=== PATIENT | male | born 1985 | race Caucasian/White ===

== ENCOUNTER 2020-08-16 03:21 | Emergency (ER) | payer MEDICAID, SELFPAY ==
[2020-08-16 03:22] VITALS: BP 137/103; PULSE 99; RESP 16; TEMP 36.7; O2SAT 100; BMI 34.7
--- NOTE | 2020-08-16 03:31 | ED.DCSUM_ITS ---
History of Present Illness Chief Complaint: Back Informant: Patient Narrative: Stated he was lifting some heavy boxes about 6 hours ago up to 50 pounds. Thinks he injured his left lower back. 2 hours later he started having spasm pain left back. No home treatment. Worse by movement. No loss of bowel or bladder function. Nothing going down his leg. Is pinpoint to the left lower back. It is a sharp pain only with movement. No pain at rest. Current severity is moderate. Does have a history of back problems but is never been diagnosed with anything serious or disc herniation or anything like that Past Medical History - Allergies and Home Meds Allergies/Adverse Reactions: Allergies No Known Allergies Allergy (Verified 06/28/16 01:57) Primary Care Physician: Mariah Gordillo MD [Primary Care Provider] - Prior records reviewed: Yes Past Medical History: - - Reviewed Surgical History: - - Reviewed Smoking Status: Current every day smoker Alcohol: None Drugs: None Review of Systems General: Denies: Chills, Fever, Sweats Eyes: Denies: Visual changes - bilaterally, Diplopia ENT: Denies: Rhinorrhea, Sore throat Cardiovascular: Denies: Chest pain, Palpitations Respiratory: Denies: Dyspnea, Cough, Dyspnea on exertion Gastrointestinal: Denies: Abdominal pain, Nausea, Vomiting, Diarrhea, Melena, Hematochezia Genitourinary: Denies: Dysuria, Hematuria, Frequency Musculoskeletal: Reports: Back pain. Denies: Extremity Pain Skin: Denies: Rash, Wounds Neurological: Denies: Headache, Weakness, Numbness Physical Exam Vital Signs/Narrative: Vital Signs Temp Pulse Resp BP Pulse Ox 08/16/20 03:22 98.1 F 99 16 137/103 H 100 General: Well nourished, Well developed, No Acute Distress Head: Normocephalic, Atraumatic Eyes: Perrl, EOMI ENT: Moist mucous membranes, No rhinorrhea Neck: Supple, Nontender Cardiovascular: Regular rate, Regular rhythm, No murmurs Respiratory: No distress, CTA bilaterally, Chest nontender Abdomen: Soft, Nontender, Nondistended, Normal bowel sounds Back: Normal Inspection, - - Point tenderness left lateral lumbar para musculature. Decreased range of motion secondary to pain in this area. Able to ambulate to the bathroom. If straight leg raise at 30 degrees.. Negative for: CVA tenderness, Spinal tenderness Extremities: Nontender, No edema Skin: Normal color, No rash Neurological: Alert, Oriented x3, Cranial nerves II-XII grossly intact, Normal Strength, Normal Sensation Psychological: Normal affect, Normal Mood Diagnostic/Tx/Re-eval - Medical Decision Making Patient given ibuprofen. He is going to drive home. Given short course of Percocet for home for breakthrough pain. Will rest and ice and use anti- inflammatories and follow-up as an outpatient at this time I feel he strained his left lower back. I do not feel he needs imaging. I do not think he has a cauda equina syndrome or epidural abscess or other emergent cause ED Disposition - Plan for ED Patient: Disposition: Home or Assisted Living Diagnosis: Low back strain Instructions: ED Back Sprain/Strain Prescriptions: Oxycodone HCl/Acetaminophen [Percocet 5/325] 1 tab PO Q6H PRN PRN 3 Days #12 tab PRN Reason: Pain Prescription Printed Referrals: Mariah Gordillo MD [Primary Care Provider] -
[2020-08-16] MEDS: Ibuprofen 400 MG Tablet 800 MG PO (03:36)
[2020-08-16 03:55] VITALS: BP 144/83; PULSE 94; RESP 16; O2SAT 99
== END 2020-08-16 03:58 | disposition home or self-care (01) ==
LOC: ED 03:53
PROVIDERS: Emergency Provider Emergency Medicine
DX: S39.012A Strain of muscle, fascia and tendon of lower back, initial encounter (principal); X50.0XXA Overexertion from strenuous movement or load, initial encounter; Y93.89 Activity, other specified; Y92.9 Unspecified place or not applicable; Y99.9 Unspecified external cause status; F17.200 Nicotine dependence, unspecified, uncomplicated
CPT/HCPCS: 99282

== ENCOUNTER 2020-08-20 15:16 | Emergency (ER) | payer MEDICAID, SELFPAY ==
[2020-08-20 15:16] VITALS: BP 156/114; PULSE 93; RESP 16; TEMP 36.4; O2SAT 97; BMI 33.8
--- NOTE | 2020-08-20 15:30 | ED.VIS.GEN ---
History of Present Illness Chief Complaint: Back Informant: Patient Narrative: Patient is a 35-year-old male who presents to the emergency department for low back pain. He was seen for a similar complaint 4 days ago. He states that he slipped today and landed on his back which aggravated his symptoms. He states the only thing that helped was the Percocet which was previously prescribed to him. He is now out of this. Not tried take anything else for it. He states his pain was getting better until he fell today. He denies any pain going down his legs. No numbness when wiping. Denies any issues with urinary retention. Already of the pain is on the left side of the low back. He denies any fevers or chills. No abdominal pain or chest pain. No prior history of back issues. Past Medical History - Allergies and Home Meds Allergies/Adverse Reactions: Allergies No Known Allergies Allergy (Verified 08/20/20 15:18) Primary Care Physician: Care Physician,No Primary [Primary Care Provider] - Lavon Son MD [[facility]] - 3-5 Days Prior records reviewed: Yes Past Medical History: None Surgical History: - - Reviewed Smoking Status: Current every day smoker Review of Systems All systems negative except as indicated General: Denies: Chills, Fever, Sweats Eyes: Denies: Visual changes - bilaterally, Diplopia ENT: Denies: Rhinorrhea, Sore throat Cardiovascular: Denies: Chest pain, Palpitations Respiratory: Denies: Dyspnea, Cough, Dyspnea on exertion Gastrointestinal: Denies: Abdominal pain, Nausea, Vomiting, Diarrhea Genitourinary: Denies: Dysuria, Hematuria, Frequency Musculoskeletal: Reports: Back pain. Denies: Extremity Pain Skin: Denies: Rash, Wounds Neurological: Denies: Headache, Weakness, Numbness Physical Exam Vital Signs/Narrative: Vital Signs Temp Pulse Resp BP Pulse Ox 08/20/20 15:16 97.6 F L 93 16 156/114 H 97 Inital Vital Signs reviewed: Yes General: Well nourished, Well developed, No Acute Distress Head: Normocephalic, Atraumatic Eyes: Perrl, EOMI ENT: Moist mucous membranes, No rhinorrhea Neck: Supple, Nontender Cardiovascular: Regular rate, Regular rhythm, No murmurs Respiratory: No distress, CTA bilaterally, Chest nontender Abdomen: Soft, Nontender, Nondistended, Normal bowel sounds Back: Normal Inspection, - - He does have some tenderness along the left paraspinal musculature of the low lumbar spine. This is tight. No obvious deformity appreciated. Normal inspection.. Negative for: Spinal tenderness Extremities: Nontender, No edema, - - 5 out of 5 muscle strength of lower extremities. Up ambulating around without issue. He is trying to stretch his back throughout him. Skin: Normal color, No rash Neurological: Alert, Oriented x3, Normal Strength, Normal Sensation Psychological: Normal affect, Normal Mood Diagnostic/Tx/Re-eval 2 view lumbar x-ray interpreted by myself. No acute fracture or subluxation noted. Mild scoliosis present. - Medical Decision Making Patient presents to the ED for low back pain. States he slipped today landing on his back. He is complaining of severe pain. He has no red flag symptoms for acute surgical emergency. Will check x-ray given the fall. Was recently prescribed Percocet so we will trial NSAIDs and muscle relaxer at this time. X-ray did not reveal any acute fracture or dislocation. I did make a PCP referral as he does not have one. Warning signs and symptoms which to return to the ED were discussed. Otherwise symptomatic treatment in the meantime. He understands and is agreeable this plan. He is discharged home in stable condition. All questions were answered. ED Disposition - Plan for ED Patient: Disposition: Home or Assisted Living Diagnosis: Low back pain Instructions: ED Back Pain (Acute or Chronic) Prescriptions: cycloBENZAPRine HCl [Flexeril] 10 mg PO TID 3 Days #9 tab Transmission Status: Received by [facility] Naproxen [Naprosyn] 500 mg PO BID #14 tab Transmission Status: Received by [facility] Referrals: Care Physician,No Primary [Primary Care Provider] - Lavon Son MD [[facility]] - 3-5 Days
--- NOTE | 2020-08-20 15:45 | RAD_ITS ---
STUDY: X-RAY - LUMBAR SPINE REASON FOR EXAM: Male, 35 years old. Back pain after falling 2 days ago, radiates to left side TECHNIQUE: AP and lateral view(s) of the lumbar spine were obtained. COMPARISON: None FINDINGS: Normal lumbar lordosis. There is no substantial scoliosis. There is a normal alignment of the vertebrae. Endplate spondylosis at the T12-L1, L1-L2 and L2-L3 levels. Normal disc space heights. The soft tissue structures are unremarkable. RAD/Lumbar Spine 2 or 3 Views IMPRESSION: Spondylosis at the T12-L1, L1-L2 and L2-L3 levels. Electronically Signed: Malcom Desai, at 16:00 EST , Service support ,
[2020-08-20] MEDS: cycloBENZAPRine HCl 10 MG Tablet PO (15:52)
[2020-08-20] MEDS: Ibuprofen 600 MG Tablet PO (15:52)
[2020-08-20 15:57] VITALS: BP 145/98
== END 2020-08-20 16:51 | disposition home or self-care (01) ==
PROVIDERS: Emergency Provider Emergency Medicine
DX: M47.816 Spondylosis without myelopathy or radiculopathy, lumbar region (principal); F17.200 Nicotine dependence, unspecified, uncomplicated
CPT/HCPCS: 72100; 99282

== ENCOUNTER 2020-08-22 13:39 | Emergency (ER) | payer MEDICAID, SELFPAY ==
[2020-08-22 13:40] VITALS: BP 171/113; PULSE 98; RESP 18; TEMP 36.4; O2SAT 100; BMI 28.7
--- NOTE | 2020-08-22 13:49 | ED.RN ---
this rn triaging pt. pt becomes frustrated and angry because questions are being asked. this rn asked pt if he scheduled his follow up and asked what medications he was on. pt voice becomes louder and states NO DR BRYANT SEE ME ON [facility].this rn asked pt why he is angry. pt states I'm not. this rn states . you seem angry and your voice is raising this rn continues asking pt triage questions. RN asks. Are you having thoughts of harming yourself or others?. pt again becomes angry. Stets in a loud voice. Sometimes when I'm in pain. This rn asks pt to clarify. This rn asks pt question for the second time, pt rises partially out of chair and glares at this nurse and forceable states NOT AT THIS TIME. pt asks for a new nurse, this rn has security to triage, charge nurse m nash aware. pt in formed this rn will complete the triage and pt will recieve a new nurse in the back. questions completed. pt has removed bp cuff and pulse sensor, vitals reobtained. security and HRO at triage. pt moved to room.
--- NOTE | 2020-08-22 14:13 | ED.VIS.GEN ---
History of Present Illness Chief Complaint: Back Informant: Patient Onset: Days - 2 Narrative: Patient presents for reevaluation continued back pain worse with movement over the past 2 days. Initially had back pain 6 days ago after lifting a heavy box, there is no radicular symptoms, he was seen in the ED was given prescription of Percocet per patient. He states that helped his symptoms. He is recovering however 2 days ago he slipped reaggravating the pain. He was seen in the ED again 2 days ago, he was provided naproxen and Flexeril which he states is not helping the symptoms. He had an x-ray at that time. He denies any radicular symptoms, any loss of bowel or bladder control. No new injuries. He does not have a PCP and states has not tried calling for follow-up. Denies any past medical history. Denies any allergies. He still has prescription of the naproxen and Flexeril left. Prior similar symptoms: Yes Past Medical History - Allergies and Home Meds Allergies/Adverse Reactions: Allergies No Known Allergies Allergy (Verified 08/22/20 13:44) Primary Care Physician: Care Physician,No Primary [Primary Care Provider] - Past Medical History: None Surgical History: - - Reviewed Smoking Status: Current every day smoker Review of Systems General: Denies: Chills, Fever, Sweats Eyes: Denies: Visual changes - bilaterally, Diplopia ENT: Denies: Rhinorrhea, Sore throat Cardiovascular: Denies: Chest pain, Palpitations Respiratory: Denies: Dyspnea, Cough, Dyspnea on exertion Gastrointestinal: Denies: Abdominal pain, Nausea, Vomiting, Diarrhea, Melena, Hematochezia Genitourinary: Denies: Dysuria, Hematuria, Frequency Musculoskeletal: Reports: Back pain. Denies: Extremity Pain Skin: Denies: Rash, Wounds Neurological: Denies: Headache, Weakness, Numbness Physical Exam Vital Signs/Narrative: Vital Signs Temp Pulse Resp BP Pulse Ox 08/22/20 13:40 97.6 F L 98 18 171/113 H 100 Inital Vital Signs reviewed: Yes General: Well nourished, Well developed, No Acute Distress Head: Normocephalic, Atraumatic Eyes: Perrl, EOMI ENT: Moist mucous membranes, No rhinorrhea Neck: Supple, Nontender Cardiovascular: Regular rate, Regular rhythm, No murmurs Respiratory: No distress, CTA bilaterally, Chest nontender Abdomen: Soft, Nontender, Nondistended, Normal bowel sounds Back: Normal Inspection, - - Tender palpation left paralumbar reproducible. Straight leg test negative bilaterally, 2+ patellar reflex bilaterally.. Negative for: Spinal tenderness Extremities: Nontender, No edema Skin: Normal color, No rash Neurological: Alert, Oriented x3, Cranial nerves II-XII grossly intact, Normal Strength, Normal Sensation Psychological: Normal affect, Normal Mood Diagnostic/Tx/Re-eval - Medical Decision Making Reviewed patient's imagings were 2 days ago noted no fractures mild spondylolisthesis at multiple levels. He has no cauda equina symptoms. [facility] report was obtained noted his last and only prescription was from 6 days ago of Percocet. Discussed with patient will write for 10 tabs of Percocet to use only as needed. He will continue his NSAIDs. He is given follow-up as an outpatient. Discussed future prescription for this acute issue will not be written through the ED and he understands this. Of note there was relayed for me from triage when discussed about suicidal homicidal ideations he became agitated, however we discussed this with patient he denies any suicidal homicidal ideations. He will follow-up as discussed. All questions were answered. ED Disposition - Plan for ED Patient: Disposition: Home or Assisted Living Diagnosis: Acute lumbar myofascial strain Instructions: ED Back Sprain/Strain Prescriptions: Oxycodone HCl/Acetaminophen [Percocet 5/325] 1 tab PO Q6H PRN PRN 3 Days #10 tab PRN Reason: Pain Prescription Printed Referrals: Care Physician,No Primary [Primary Care Provider] - Cortney Campos [NON-STAFF] - 3-5 Days if not improving
[2020-08-22 14:27] VITALS: RESP 16
== END 2020-08-22 14:27 | disposition home or self-care (01) ==
PROVIDERS: Emergency Provider Emergency Medicine
DX: S39.012A Strain of muscle, fascia and tendon of lower back, initial encounter (principal); X50.0XXA Overexertion from strenuous movement or load, initial encounter; Y93.89 Activity, other specified; Y92.9 Unspecified place or not applicable; Y99.9 Unspecified external cause status; W18.40XA Slipping, tripping and stumbling without falling, unspecified, initial encounter; F17.200 Nicotine dependence, unspecified, uncomplicated
CPT/HCPCS: 99282

== ENCOUNTER 2021-12-29 20:45 | Emergency (ER) | payer MEDICAID, SELFPAY ==
[2021-12-29 20:45] VITALS: BP 139/82; PULSE 84; RESP 16; TEMP 36.8; O2SAT 98; BMI 32.5
--- NOTE | 2021-12-29 20:58 | EDS_ITS ---
HPI History of Present Illness Chief Complaint: Back Detail of Chief Complaint: Upper back pain near the left scapula Informant: patient and spouse/S.O. Onset/Context/Timing Onset: Today Context: Sudden Onset Injury: lifting, bending and - (Helped cut down a tree 2 to 3 days ago) Timing: Continuous and Waxes and wanes Quality: Dull, Aching and Throbbing Location: - (Medial the left scapula) Current Severity: Mild Maximum Severity: Severe Worsened by: improves with Movement Relieved by: Remaining Still Associated Symptoms Associated Symptoms: Negative for Numbness and Tingling Narrative Narrative: Patient is a 36-year-old male who presents with left upper back pain. He cut down a tree 2 to 3 days ago. He complains of pain with movement. Denies paresthesia, anesthesia motors. He states it hurts to breathe or move. There is no history of direct trauma. He denies any HEENT or cardiac symptoms. He denies GI symptoms. He has no contraindication to NSAIDs. Recent Illness/Hospitalization: No PFSH PFSH Medical History no medical history no medical history Home Medications naproxen 500 mg PO BID #14 tab 08/20/20 [Rx Last Taken Unknown] hydrocodone-acetaminophen 1 tab PO Q6H PRN PRN 3 Days #10 tablet 12/29/21 [Rx Last Taken Unknown] naproxen 500 mg PO BID #10 tab 12/29/21 [Rx Last Taken Unknown] Allergy/AdvReac Type Severity Reaction Status Date / Time No Known Allergies Allergy Verified 12/29/21 20:55 Surgical History no surgical history no surgical history Social History (Updated 12/29/21 @ 21:[address] Eben Dominguez MD) household members: significant other Smoking Status: Light Smoker (<10/day) substance use type: does not use ROS ROS ED Constitutional Constitutional ED: Denies chills, fever(s), subjective or sweats Eyes Eyes: Denies blurry vision or change in vision Cardiovascular Cardiovascular: Denies chest pain, palpitations or racing heartbeat Respiratory/Chest Respiratory/Chest: Denies dyspnea, dyspnea on exertion or sputum Gastrointestinal Gastrointestinal: Denies nausea or vomiting Musculoskeletal Musculoskeletal: Reports back pain; Denies arthralgias, myalgias or neck pain Integumentary Denies rash Neurologic Neurologic: Denies headache(s), paresthesias or weakness Hematologic/Lymphatic Hematologic/Lymphatic: Denies easy bleeding or easy bruising EXAM Physical Exam Const Vital Signs: 12/29/21 20:45 Temperature 98.3 F Temperature Source Temporal Pulse Rate 84 Respiratory Rate 16 Blood Pressure 139/82 H Blood Pressure Mean 101 Pulse Ox 98 Oxygen Delivery Method Room Air Positive well nourished and well developed General Appearance ED: well developed and NAD; Negative for pallor HEENT Reports moist mucous membranes HEENT Narrative: Ears normal. Nares patent. Negative for trauma or tenderness Eyes PERRL and EOMs intact bilaterally General Eye ED: Negative for pale conjunctiva or scleral icterus Neck no lymphadenopathy, supple and no JVD Resp normal respiratory effort and clear to auscultation bilaterally Cardio regular rate, regular rhythm, S1 normal heart sound, S2 normal heart sound and no murmurs Back/Spine normal to inspection; Negative for no thoracic nor lumbar tenderness Back/Spine Narrative: There is pain to all patient with abduction past 90 degrees. There is also pain with external rotation. He does have tenderness medial of the body of the left scapula. General Back: Negative for CVA tenderness Cervical Spine: Negative for paracervical muscle tenderness Extremity normal to inspection and no clubbing, cyanosis or edema General Extremety ED: Negative for edema or tenderness General Extremity: Negative for edema Neuro oriented x3 and no sensory deficits noted Sensorium / Orientation: alert Motor Exam: strength 5/5 throughout Psych mental status grossly normal Skin no rashes or lesions noted and no wounds General Skin Exam: Negative for jaundice or pallor MDM MDM MDM Narrative Medical decision making narrative: Patient's back pain is muscular in etiology. Imaging is not indicated. Is no contraindication to NSAIDs. He was treated with oral meds and discharged home with appropriate instructions and prescri ptions. Discharge Plan Triage Chief Complaint: Back ED Provider: Eben Dominguez Dx/Rx/DC Orders Clinical Impression: Muscle strain of left upper back Prescriptions: New hydrocodone-acetaminophen [hydrocodone-acetaminophen] 1 TABLET tablet 1 tab PO Q6H PRN PRN (Reason: Pain) 3 Days Qty: 10 RF: 0 naproxen 500 MG tablet 500 mg PO BID Qty: 10 RF: 0 No Action naproxen 500 MG tablet 500 mg PO BID Qty: 14 RF: 0 Primary Care Provider: Care Physician,No Primary Referrals: Care Physician,No Primary [Primary Care Provider] - Activity Restrictions/Additional Instructions: Your physician's name is located on your insurance card issued to you by [facility]. If there is no improvement in 3 to 5 days follow-up with your doctor Apply ice 8 times a day for the next 3 to 5 days. Disposition Disposition: Home, Self Care
[2021-12-29] MEDS: Naproxen 250 MG Tablet 500 MG PO (21:15)
[2021-12-29] MEDS: diazePAM 2 MG Tablet PO (21:16)
[2021-12-29] MEDS: HYDROcodone Bitartrate/Apap 5/325 Tablet PO (21:16)
== END 2021-12-29 21:18 | disposition home or self-care (01) ==
LOC: ED 21:07
PROVIDERS: Emergency Provider Emergency Medicine; Visit Provider Emergency Medicine
DX: S29.012A Strain of muscle and tendon of back wall of thorax, initial encounter (principal); X50.9XXA Other and unspecified overexertion or strenuous movements or postures, initial encounter; Y93.H9 Activity, other involving exterior property and land maintenance, building and construction; F17.200 Nicotine dependence, unspecified, uncomplicated
CPT/HCPCS: 99283

== ENCOUNTER 2022-10-30 17:54 | Emergency (ER) | payer MEDICAID, SELFPAY ==
[2022-10-30 17:55] VITALS: BP 124/78; PULSE 79; RESP 18; TEMP 37.1; O2SAT 95; BMI 35.2
[2022-10-30] MEDS: traMADol 50 MG Tablet PO (21:05)
--- NOTE | 2022-10-30 21:14 | RAD_ITS ---
INDICATION: [Chest pain after trauma. EXAMINATION/TECHNIQUE: X-RAY - XR Ribs Unilateral W/ PA Chest Min 3 Views. 5 views. COMPARISON: None. FINDINGS: SOFT TISSUES: No soft tissue swelling or gas. BONES: Rightward curvature of the thoracic spine with degenerative changes. No sclerotic or destructive changes observed. LUNGS: No focal airspace consolidation. No pneumothorax. MEDIASTINUM: Normal size of the cardiac silhouette. Normal appearance of the aorta and pulmonary vasculature. RAD/Ribs Uni Min 3V w/PA Chest IMPRESSION: No evidence of displaced rib fracture. Electronically Signed: Lakhwinder Flower MD at 22:24 EST ,
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
== END 2022-10-30 23:03 | disposition home or self-care (01) ==
PROVIDERS: Emergency Provider Emergency Medicine; Visit Provider Emergency Medicine
DX: S29.019A Strain of muscle and tendon of unspecified wall of thorax, initial encounter (principal); Z87.891 Personal history of nicotine dependence; X58.XXXA Exposure to other specified factors, initial encounter
CPT/HCPCS: 71101; 96372; 99283